=== PATIENT | male | born 1970 | race Caucasian/White ===

== ENCOUNTER 2018-07-05 23:23 | Emergency (ER) | payer SELFPAY ==
--- NOTE | 2018-07-05 23:49 | EDM.PDOC ---
ED HPI GENERAL MEDICAL PROBLEM - General Chief Complaint: Lower Extremity Injury/Pain Stated Complaint: LEFT ANKLE PAIN FALL 2 DAYS AGO Time Seen by Provider: 07/05/18 23:34 Source of Information: Reports: Patient, RN Notes Reviewed - History of Present Illness INITIAL COMMENTS - FREE TEXT/NARRATIVE: 48-year-old male injured his left ankle 90s ago. He states he slipped on the ice , twisted the ankle, "heard something pop". Pain was not bad initially. 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 Left Ankle Pain Score (Numeric/FACES): 6 - Related Data Allergies Allergy/AdvReac Type Severity Reaction Status Date / Time No Known Allergies Allergy Verified 07/05/18 23:36 Home Meds: Home Meds . [No Known Home Meds] 07/05/18 [History] Past Medical History - Past Health History Medical/Surgical History: Denies Medical/Surgical History Social & Family History - Tobacco Use Smoking Status *Q: Current Some Day Smoker Years of Tobacco use: 12 Packs/Tins Daily: 1 - Caffeine Use Caffeine Use: Reports: Coffee, Soda - Recreational Drug Use Recreational Drug Use: No Review of Systems - Review of Systems Review Of Systems: See Below Constitutional: Reports: No Symptoms Respiratory: Denies: Shortness of Breath Cardiovascular: Denies: Chest Pain GI/Abdominal: Denies: Nausea, Vomiting Musculoskeletal: Reports: Joint Pain (Left ankle) Skin: Reports: Other (chronic discoloration distal legs) ED EXAM, GENERAL - Physical Exam Exam: See Below General Appearance: Alert, No Apparent Distress Head: Atraumatic Neck: Supple Respiratory/Chest: No Respiratory Distress Extremities: Joint Swelling (Very mild diffuse swelling left ankle, there is mild tenderness medially, mild to moderate tenderness lateral joint, Achilles is intact to palpation, nontender at this time. Foot nontender) Skin Exam: Other (Stasis dermatitis skin changes both distal extremities) Course - Vital Signs Last Recorded V/S: Last Vital Signs Temp 98.1 F 07/05/18 23:33 Pulse 95 07/05/18 23:33 Resp 16 07/05/18 23:33 BP 147/100 H 07/05/18 23:33 Pulse Ox 99 07/05/18 23:33 - Orders/Labs/Meds Orders: Active Orders 24 hr Category Date Time Status Ankle Min 3V Lt [CR] Stat Exams 07/05/18 23:41 Taken - Re-Assessments/Exams Free Text/Narrative Re-Assessment/Exam: 07/06/18 00:05 X-ray of ankle shows no fracture Departure - Departure Time of Disposition: 00:06 Disposition: Home, Self-Care 01 Condition: Fair Clinical Impression: Left ankle sprain Qualifiers: Encounter type: initial encounter Involved ligament of ankle: unspecified ligament Qualified Code(s): S93.402A - Sprain of unspecified ligament of left ankle, initial encounter - Discharge Information Referrals: PCP,None [Primary Care Provider] - Forms: ED Department Discharge Additional Instructions: Boby wrap, elevate foot and ankle is much as possible when not working, try reduce her work hours to give this more time to heal. Tylenol 2-3 times daily if needed for discomfort. Have rechecked if not getting better within 7-10 days as expected. - My Orders Last 24 Hours: My Active Orders 07/05/18 23:41 Ankle Min 3V Lt [CR] Stat - Assessment/Plan Last 24 Hours: My Active Orders 07/05/18 23:41 Ankle Min 3V Lt [CR] Stat
--- NOTE | 2018-07-06 08:20 | CR ---
Left ankle: Four views of the left ankle were obtained. Comparison: No prior ankle study. Plantar spur is seen. Small spur is noted at the attachment of the Achilles tendon to the calcaneus. Ankle mortise is symmetric. No acute fracture or other bony abnormality is seen. Impression: 1. Calcaneal spurs. Nothing acute is seen on left ankle exam. Diagnostic code #2
== END 2018-07-06 00:18 | disposition home or self-care (01) ==
LOC: JD.ED 23:23
DX: S93.402A Sprain of unspecified ligament of left ankle, initial encounter (principal); I87.2 Venous insufficiency (chronic) (peripheral); F17.210 Nicotine dependence, cigarettes, uncomplicated; W00.0XXA Fall on same level due to ice and snow, initial encounter
CPT/HCPCS: 73610-26-LT; 73610-LT; 99282; 99283-25